=== PATIENT | female | born 1990 | race Caucasian/White ===

== ENCOUNTER 2020-04-01 17:35 | Observation (INO) | payer BC ==
[2020-04-01] MEDS ORDERED: SODIUM CHLORIDE 0.9% (FLUSH) 10 ML SYG IV PRN ×2 (17:57→22:10)
[2020-04-01] MEDS ORDERED: ONDANSETRON INJ 4 MG/2 ML VIAL IV ONE (17:57)
[2020-04-01] MEDS ORDERED: SODIUM CHLORIDE 0.9% 1000ML 1,000 ML IVS ONE (17:59)
[2020-04-01] MEDS ORDERED: HYDROmorphone HCL INJ 2 MG/ML VIAL IV ONE ×2 (18:05→19:17)
[2020-04-01] MEDS: SODIUM CHLORIDE 0.9% 1000ML 1,000 ML IVS ONE ×2 (18:16→20:45)
--- NOTE | 2020-04-01 20:05 | ED.PDOC ---
History of Present Illness - General Chief Complaint: GI Problem Stated Complaint: Abd pain, N/V x 2, SOB, not eating well Time Seen by Provider: 04/01/20 17:52 Source: patient, RN notes reviewed, Vital Signs reviewed Exam Limitations: no limitations - History of Present Illness Initial Comments: Patient is a 29-year-old white female who presents with complaints of nausea, vomiting and left upper quadrant abdominal pain for the last 2 days. Patient states the pain is worsening. Patient's been unable to hold anything down. The pain is cramping and stabbing in nature. It waxes and wanes. There is no radiation of the pain. Patient denies any fever. Nothing makes the pain better. Is worse when she tries to eat or drink anything. Timing/Duration: other - 2 days Severity: severe Improving Factors: nothing Worsening Factors: eating Associated Symptoms: loss of appetite, nausea/vomiting, shortness of breath Allergies/Adverse Reactions: Allergies NO KNOWN ALLERGY Allergy (Verified 04/01/20 17:59) Home Medications: Ambulatory Orders NK 04/01/20 Review of Systems - Review of Systems Constitutional: States: see HPI, malaise, weakness. Denies: chills, fever EENTM: States: no symptoms reported. Denies: eye pain, blurred vision, double vision, throat pain, throat swelling, mouth pain, mouth swelling Respiratory: States: no symptoms reported, see HPI, short of breath. Denies: cough, stridor, wheezing Cardiology: States: no symptoms reported. Denies: chest pain, palpitations, syncope Gastrointestinal/Abdominal: States: see HPI, abdominal pain, nausea, vomiting. Denies: constipation, diarrhea Genitourinary: States: no symptoms reported. Denies: dysuria, frequency Musculoskeletal: States: no symptoms reported. Denies: back pain, neck pain Skin: States: no symptoms reported. Denies: change in color, rash Neurological: States: no symptoms reported. Denies: headache, numbness, paresthesia, tingling Endocrine: States: no symptoms reported. Denies: excessive sweating, flushing, intolerance to cold, intolerance to heat Hematologic/Lymphatic: States: no symptoms reported All other Systems: Reviewed and Negative Past Medical History (General) - Patient Medical History Hx Stroke: No Hx of COPD: No Hx Cardiac Disorders: No Hx Hypertension: No Hx Diabetes: No Surgical History: no surgical history - Vaccination History Hx Influenza Vaccination: No Hx Pneumococcal Vaccination: No - Social History Hx Tobacco Use: Yes Hx Alcohol Use: Yes Hx Substance Use: Yes - Edible marijuana Hx Substance Use Treatment: No Hx Depression: No - Female History Patient is a Female of Child Bearing Age (10 -59 yrs old): Yes Patient : No - Denies Family Medical History - Family History Mother Living Status: Still Living Hx Family Hypertension: Yes Hx Cardiac Disease: Yes Hx Family Diabetes: Yes Physical Exam - Physical Exam General Appearance: Alert, Anxious, Obvious distress, Well Developed, Well Groomed, Well Nourished Eye Exam: bilateral normal Ears, Nose, Throat: hearing grossly normal, normal ENT inspection, normal pharynx - Except dry mucous membranes Neck: non-tender, full range of motion, supple, normal inspection Respiratory: chest non-tender, lungs clear, normal breath sounds, no respiratory distress, no accessory muscle use Cardiovascular/Chest: normal peripheral pulses, regular rate, rhythm, no edema, no gallop, no JVD, no murmur Peripheral Pulses: radial,right: 2+, radial,left: 2+ Gastrointestinal/Abdominal: normal bowel sounds, soft, tenderness - Left upper quadrant Back Exam: normal inspection, no CVA tenderness, no vertebral tenderness Extremity: normal range of motion, non-tender, normal inspection Neurologic: sneller hand II-XII nml as tested, no motor/sensory deficits, alert, normal mood/affect, oriented x 3 Skin Exam: normal color, warm/dry Lymphatic: no adenopathy Progress - Progress Progress: Differential diagnosis: Diverticulitis, bowel obstruction, pyelonephritis, UTI among others. 04/01/20 20:37 Patient with an elevated white count. On CT, patient with acute appendicitis. Plan on admission to the hospital and IV antibiotics. I discussed this plan of care with the patient and she voices understanding and agreement. I discussed this patient with Dr. Shaver, general surgery, and he agrees for admission with consult to him. He agrees with my choices Zosyn for antibiotics. I discussed this patient with Arsen Morrell NP, the hospitalist, and he is agreed to admit the patient to the hospital. Erick Diaz M.D. #[id number] - Results/Orders Results/Orders: EXAM: CT Abdomen and Pelvis With Intravenous Contrast CLINICAL HISTORY: 29 years old Female; LUQ pain. TECHNIQUE: Axial computed tomography images of the abdomen and pelvis with intravenous contrast. Sagittal and coronal reformatted images were created and reviewed. This CT exam was performed using one or more of the following dose reduction techniques: automated exposure control, adjustment of the mA and/or kV according to patient size, and/or use of iterative reconstruction technique. CONTRAST: 85 mL Optiray 320 IV. COMPARISON: No relevant prior studies available. FINDINGS: LUNG BASES: Mild patchy infiltrate/atelectasis in the lung bases. ABDOMEN: LIVER: Some periportal edema. GALLBLADDER AND BILE DUCTS: Normal without CT evidence of acute cholecystitis. PANCREAS: Unremarkable. No mass. No ductal dilation. SPLEEN: No splenomegaly or focal abnormality seen. ADRENALS: Unremarkable. No mass. KIDNEYS AND URETERS: Tiny low density in the posterior left kidney which is too small to accurately characterize by CT but statistically most likely represents a small cyst. STOMACH AND BOWEL: Moderate fecal retention and relatively diffuse colonic spasm without bowel obstruction. PELVIS: APPENDIX: [place] appendicolith in the mid appendiceal lumen which measures up to 12 mm in diameter. Distal to this appendicolith, the appendiceal lumen is distended up to 12 mm with fluid and other smaller appendicoliths to the level of the appendiceal tip. Fat stranding surrounding the appendiceal tip. No periappendiceal free fluid or loculated fluid collection seen. BLADDER: No urinary bladder wall thickening or filling defect seen. REPRODUCTIVE: 1.8 cm partially collapsed right ovarian cyst. No focal abnormality identified in the left ovary. Uterus mildly asymmetrically positioned in the left pelvis and retroflexed. Some air noted in the vaginal cavity. ABDOMEN and PELVIS: INTRAPERITONEAL SPACE: Small amount of free fluid in the dependent pelvis. No pneumoperitoneum seen. BONES/JOINTS: No acute abnormality seen. SOFT TISSUES: No acute abnormality seen. VASCULATURE: Multiple small phleboliths in the pelvis bilaterally. LYMPH NODES: No pathologic lymphadenopathy identified. IMPRESSION: - [place] appendicolith in the mid appendiceal lumen which measures up to 12 mm in diameter. Distal to this appendicolith, the appendiceal lumen is distended up to 12 mm with fluid and other smaller appendicoliths to the level of the appendiceal tip. Fat stranding surrounding the appendiceal tip. No periappendiceal free fluid or loculated fluid collection seen. Findings consistent with tip appendicitis. No pneumoperitoneum seen. - 1.8 cm partially collapsed right ovarian cyst. Associated with a small amount of free fluid in the dependent pelvis. ACR White Paper guidelines (Bryan, et. al. JACR 2013; 10(9):675-681) suggest that no follow-up is necessary. - Some periportal edema. Of uncertain clinical significance. - Moderate fecal retention and relatively diffuse colonic spasm without bowel obstruction. - This result was discussed directly with the referring clinician, Dr. Erick Diaz, via telephone on 04/01/2020 8:19 PM CDT. Thank you for allowing us to participate in the care of this patient. Electronically signed by: Marcin Ray MD 04/01/2020 8:30 PM CDT 04/01/20 17:57 Sodium Chloride 0.9% (Flush) [Saline Flush Syringe] 10 ml IV PRN PRN 04/01/20 19:05 Hold Metformin x 48Hrs [id number] 04/01/20 20:33 Piperacillin/Tazobactam [Zosyn] 4.5 gm Sodium Chloride 0.9% 100Ml [NS (NACL 0.9%) 100ml] 100 ml IVPB ONCE Laboratory Results - last 24 hr 04/01/20 04/01/20 04/01/20 18:00 18:00 18:00 WBC 12.4 H RBC 4.96 Hgb 14.3 Hct 42.3 MCV 85.4 MCH 28.9 MCHC 33.8 RDW 12.5 Plt Count 254 MPV 9.7 Absolute Neuts (auto) 8.90 H Absolute Lymphs (auto) 2.80 Absolute Monos (auto) 0.70 Absolute Eos (auto) 0.00 Absolute Basos (auto) 0.10 Neutrophils % 71.3 Lymphocytes % 22.4 Monocytes % 5.5 Eosinophils % 0.3 L Basophils % 0.5 Sodium 139 Potassium 3.3 L Chloride 103 Carbon Dioxide 20 L Anion Gap 19.3 H BUN 7 Creatinine 0.63 BUN/Creatinine Ratio 11.1 Random Glucose 130 H Serum Osmolality 277.3 Calcium 9.6 Total Bilirubin 1.4 H Direct Bilirubin 0.2 Indirect Bilirubin 1.2 H AST 32 ALT 25 Alkaline Phosphatase 60 Serum Total Protein 7.9 Albumin 4.9 Lipase 35 Serum HCG, Qual Urine Color Urine Appearance Urine pH Ur Specific [place] Urine Protein Urine Glucose (UA) Urine Ketones Urine Blood Urine Nitrite Urine Bilirubin Urine Urobilinogen Ur Leukocyte Esterase Urine RBC Urine WBC Ur Epithelial Cells Urine Bacteria Urine Mucus 04/01/20 04/01/20 18:00 19:59 WBC RBC Hgb Hct MCV MCH MCHC RDW Plt Count MPV Absolute Neuts (auto) Absolute Lymphs (auto) Absolute Monos (auto) Absolute Eos (auto) Absolute Basos (auto) Neutrophils % Lymphocytes % Monocytes % Eosinophils % Basophils % Sodium Potassium Chloride Carbon Dioxide Anion Gap BUN Creatinine BUN/Creatinine Ratio Random Glucose Serum Osmolality Calcium Total Bilirubin Direct Bilirubin Indirect Bilirubin AST ALT Alkaline Phosphatase Serum Total Protein Albumin Lipase Serum HCG, Qual Negative Urine Color Yellow Urine Appearance Sl cloudy Urine pH >= 9.0 H* Ur Specific [place] 1.015 Urine Protein Trace Urine Glucose (UA) Negative Urine Ketones 40 H Urine Blood Negative Urine Nitrite Negative Urine Bilirubin Negative Urine Urobilinogen 0.2 Ur Leukocyte Esterase Negative Urine RBC 0 Urine WBC 0-1 Ur Epithelial Cells 1-3 Urine Bacteria 0 Urine Mucus Small Departure - Departure Clinical Impression: Dehydration, Hypokalemia Appendicitis Qualifiers: Appendicitis type: acute appendicitis Acute appendicitis type: with localized peritonitis Appendicitis gangrene presence: without gangrene Appendicitis perforation presence: without perforation Appendicitis abscess presence: without abscess Qualified Code(s): K35.30 - Acute appendicitis with localized peritonitis, without perforation or gangrene Time of Disposition: 18:20 Disposition: Admit Patient Condition: Good Departure Forms: ED Discharge - Pt. Copy, Patient Portal Self Enrollment Referrals: Leroy Nguyen MD [Primary Care Provider] - 1-2 Weeks Home Medications: Ambulatory Orders NK 04/01/20 Decision To Admit - Decistion To Admit Decision to Admit Date: 04/01/20 Decision to Admit Time: 18:20
--- NOTE | 2020-04-01 20:31 | CT ---
EXAM: CT Abdomen and Pelvis With Intravenous Contrast CLINICAL HISTORY: 29 years old Female; LUQ pain. TECHNIQUE: Axial computed tomography images of the abdomen and pelvis with intravenous contrast. Sagittal and coronal reformatted images were created and reviewed. This CT exam was performed using one or more of the following dose reduction techniques: automated exposure control, adjustment of the mA and/or kV according to patient size, and/or use of iterative reconstruction technique. CONTRAST: 85 mL Optiray 320 IV. COMPARISON: No relevant prior studies available. FINDINGS: LUNG BASES: Mild patchy infiltrate/atelectasis in the lung bases. ABDOMEN: LIVER: Some periportal edema. GALLBLADDER AND BILE DUCTS: Normal without CT evidence of acute cholecystitis. PANCREAS: Unremarkable. No mass. No ductal dilation. SPLEEN: No splenomegaly or focal abnormality seen. ADRENALS: Unremarkable. No mass. KIDNEYS AND URETERS: Tiny low density in the posterior left kidney which is too small to accurately characterize by CT but statistically most likely represents a small cyst. STOMACH AND BOWEL: Moderate fecal retention and relatively diffuse colonic spasm without bowel obstruction. PELVIS: APPENDIX: [place] appendicolith in the mid appendiceal lumen which measures up to 12 mm in diameter. Distal to this appendicolith, the appendiceal lumen is distended up to 12 mm with fluid and other smaller appendicoliths to the level of the appendiceal tip. Fat stranding surrounding the appendiceal tip. No periappendiceal free fluid or loculated fluid collection seen. BLADDER: No urinary bladder wall thickening or filling defect seen. REPRODUCTIVE: 1.8 cm partially collapsed right ovarian cyst. No focal abnormality identified in the left ovary. Uterus mildly asymmetrically positioned in the left pelvis and retroflexed. Some air noted in the vaginal cavity. ABDOMEN and PELVIS: INTRAPERITONEAL SPACE: Small amount of free fluid in the dependent pelvis. No pneumoperitoneum seen. BONES/JOINTS: No acute abnormality seen. SOFT TISSUES: No acute abnormality seen. VASCULATURE: Multiple small phleboliths in the pelvis bilaterally. LYMPH NODES: No pathologic lymphadenopathy identified. IMPRESSION: - [place] appendicolith in the mid appendiceal lumen which measures up to 12 mm in diameter. Distal to this appendicolith, the appendiceal lumen is distended up to 12 mm with fluid and other smaller appendicoliths to the level of the appendiceal tip. Fat stranding surrounding the appendiceal tip. No periappendiceal free fluid or loculated fluid collection seen. Findings consistent with tip appendicitis. No pneumoperitoneum seen. - 1.8 cm partially collapsed right ovarian cyst. Associated with a small amount of free fluid in the dependent pelvis. ACR White Paper guidelines (Adams, et. al. JACR 2013; 10(9):675-681) suggest that no follow-up is necessary. - Some periportal edema. Of uncertain clinical significance. - Moderate fecal retention and relatively diffuse colonic spasm without bowel obstruction. - This result was discussed directly with the referring clinician, Dr. Erick Diaz, via telephone on 04/01/2020 8:19 PM CDT. Thank you for allowing us to participate in the care of this patient. Electronically signed by: Marcin Ray MD 04/01/2020 8:30 PM CDT
[2020-04-01] MEDS ORDERED: PIPERACILLIN/TAZOBACTAM 4.5 GM in SODIUM CHLORIDE 0.9% 100ML 100 ML IVPB ONE (20:33)
[2020-04-01] MEDS ORDERED: PROMETHAZINE HCL INJ 25 MG in SODIUM CHLORIDE 0.9% 50ML 50 ML IVPB ONE (20:39)
[2020-04-01] MEDS ORDERED: SODIUM CHLORIDE 0.9% 1000ML 1,000 ML ONE (20:45)
--- NOTE | 2020-04-01 20:52 | HP ---
SUPERVISING PHYSICIAN: Claude Dodd MD CHIEF COMPLAINT: Right lower quadrant pain consistent with appendicitis. HISTORY OF PRESENT ILLNESS: Ms. Garrison is a 29-year-old female patient who presented to the Emergency Room last night with some acute right sided abdominal pain. She endorsed the onset of symptoms was acute within 3 hours prior to admission. She had previously not had any similar symptoms. On admission, she denied any fever or chills. She had a little bit of nausea with food and no other significant symptoms. Workup in the ER did show she had a leukocytosis of 12,400 with early left shift. CT of the abdomen with contrast showed findings consistent with acute appendicitis. The patient is going to be placed in observation for surgical consultation with Dr. Rivera for laparoscopic appendectomy in the morning. She is in stable condition at time of admission. PAST MEDICAL HISTORY: No chronic illnesses. PAST SURGICAL HISTORY: No surgical history. HOME MEDICATIONS: No chronic medications, no [id number] medications. ALLERGIES: NO KNOWN DRUG ALLERGIES. FAMILY HISTORY: Noncontributory. SOCIAL HISTORY: The patient lives in [place]. She is and has one child. She does not smoke, does not drink alcohol and does not use any illicit drugs. REVIEW OF SYSTEMS: CONSTITUTIONAL: Negative for any fevers, chills, general malaise, body aches. HEENT: Negative for headaches, sore throats, nasal congestion, vision changes. RESPIRATORY: Negative for coughing, wheezing or shortness of breath. CARDIOVASCULAR: Negative for chest pain, palpitations or syncopal episodes. GASTROINTESTINAL: As noted in history of present illness, right lower quadrant abdominal pains, nausea. Denies constipation or diarrhea. GENITOURINARY: Negative for dysuria, hematuria, polyuria. MUSCULOSKELETAL: Negative for arthralgias or joint swelling. SKIN: Negative for lesions, rashes, moles or unexplained changes. NEUROLOGIC: Negative for headaches, vision changes, syncopal episodes, ataxia, seizures, focal deficits. HEMATOLOGIC: Negative for easy bruising, unexplained bleeding or transfusion reactions. PHYSICAL EXAMINATION: VITAL SIGNS: Temperature 97, pulse 114, blood pressure 114/64, respirations 21, O2 saturation 98% on room air. GENERAL: The patient is resting comfortably, does not appear to be in any acute distress. She is alert. HEENT: Tympanic membranes clear bilaterally. Oropharynx is pink, moist without any lesions. NECK: Supple, nontender with full range of motion. No jugular venous distention noted. RESPIRATORY: Clear to auscultation bilaterally without any rhonchi, wheezes or rales. CARDIOVASCULAR: Regular rate and rhythm without any appreciable murmurs, gallops, or rubs. ABDOMEN: Soft with some tenderness noted in the right lower quadrant. There is rebound tenderness and point tenderness to the right lower quadrant. No other concerning signs, no peritoneal signs. Bowel sounds active. EXTREMITIES: There is no cyanosis, clubbing or edema. NEUROLOGIC: The patient is alert and oriented times three. LABORATORY: White count on admission was 12.4, hemoglobin 14.3, hematocrit 42.3. Differential showed early left shift. Platelet count 254,000. Chemistries showed electrolytes with potassium 3.3, creatinine 0.63. Liver functions show slightly elevated bilirubin at 0.4. AST, ALT within normal limits. Lipase normal. Urine HCG negative. Urine showed just 40 of ketones, otherwise within normal limits. RADIOLOGY: CT of the abdomen and pelvis with contrast showed findings consistent with acute appendicitis. ASSESSMENT: 1. Acute appendicitis. PLAN: The patient is going to be placed in observation for surgical consultation with Dr. Rivera with anticipation of laparoscopic appendectomy in the morning. She will be NPO overnight. She will be provided with pain management and antiemetics if needed. I anticipate her length of stay to be one to two days probably discharging later tomorrow after she has surgery. Until then, we will continue to monitor and treat as needed. #[id number] [facility]
[2020-04-01] MEDS ORDERED: ONDANSETRON INJ 4 MG/2 ML VIAL IV PRN (22:10)
[2020-04-01] MEDS ORDERED: ACETAMINOPHEN 325 MG TAB PO PRN (22:10)
[2020-04-01] MEDS ORDERED: KCL 20MEQ/D5 1/2NS 1,000 ML IVS PRN (22:18)
[2020-04-01] MEDS ORDERED: IV SET AND CAP CHANGE INJ INJ SCH (22:30)
[2020-04-02] MEDS: MORPHINE SULFATE INJ 10 MG/ML VIAL IV PRN ×2 (03:17→07:24)
[2020-04-02] MEDS ORDERED: PANTOPRAZOLE SODIUM IV 40 MG VIAL IV SCH (06:30)
[2020-04-02] MEDS ORDERED: KETOROLAC TROMETHAMINE INJ 30 MG/ML VIAL ONE (07:00)
[2020-04-02] MEDS ORDERED: GLYCOPYRROLATE 0.2 MG/ML VIAL ONE (07:00)
[2020-04-02] MEDS ORDERED: LIDOCAINE 1% 10 ML VIAL INJ ONE (07:00)
[2020-04-02] MEDS ORDERED: NEOSTIGMINE METHYLSULFATE 1 MG/ML ML IV ONE ×2 (07:00→07:08)
[2020-04-02] MEDS ORDERED: ONDANSETRON INJ 4 MG/2 ML VIAL ONE (07:00)
[2020-04-02] MEDS ORDERED: PROPOFOL 200 MG/20 ML VIAL IV ONE (07:00)
[2020-04-02] MEDS ORDERED: DEXAMETHASONE INJ 10 MG/ML VIAL ONE (07:00)
[2020-04-02] MEDS ORDERED: MIDAZOLAM INJ 2 MG/2 ML VIAL ONE (07:05)
[2020-04-02] MEDS ORDERED: BUPIVACAINE 0.5% W/EPI 30 ML VIAL INJ ONE ×3 (07:05→08:56)
[2020-04-02] MEDS ORDERED: fentaNYL CITRATE INJ 50 MCG/ML AMP ONE (07:05)
[2020-04-02] MEDS ORDERED: SODIUM CHLORIDE 0.9% 1000ML 1,000 ML ONE (07:05)
[2020-04-02] MEDS ORDERED: ROCURONIUM BROMIDE 10 MG/ML VIAL ONE (07:06)
[2020-04-02] MEDS ORDERED: SUCCINYLCHOLINE CHLORIDE 200 MG/10 ML VIAL ONE (07:06)
[2020-04-02] MEDS ORDERED: SODIUM CHLORIDE 0.9% 100ML 100 ML IVPB ONE (08:08)
[2020-04-02] MEDS ORDERED: LACTATED RINGERS 1,000 ML ONE ×2 (08:17→09:27)
[2020-04-02] MEDS ORDERED: LACTATED RINGERS 1,000 ML IVS ONE (09:25)
[2020-04-02] MEDS ORDERED: PIPERACILLIN/TAZOBACTAM 4.5 GM in SODIUM CHLORIDE 0.9% 100ML 100 ML IVPB SCH (09:30)
--- NOTE | 2020-04-02 09:33 | OP ---
DATE OF PROCEDURE: 04/01/20 PREOPERATIVE DIAGNOSIS: Acute appendicitis. POSTOPERATIVE DIAGNOSIS: Acute appendicitis. PROCEDURE: Laparoscopic appendectomy. SURGEON: Leroy Rivera MD ANESTHESIA: General and local. FINDINGS: Acute suppurative nonperforated appendix. COMPLICATIONS: None. ESTIMATED BLOOD LOSS: Minimal. SPECIMEN: Appendix. PLAN: Likely discharge after recovery. INDICATION: As stated. PROCEDURE: General anaesthesia was induced. She was prepped and draped in sterile fashion. 0.5% Marcaine with epinephrine was used at all incision sites. While maintaining upward traction, a shiela was made in the base of the umbilicus. A Veress needle was introduced. There was free flow of fluid into the peritoneal cavity which was insufflated to an appropriate level with CO2 gas. A 5 mm trocar was placed followed by the camera. There was no evidence of bleeding or bowel injury. The patient was positioned and the suprapubic and right lower quadrant ports were placed under direct visualization without difficulty. The appendix was easily identified. It was quite long with some natural adhesions to it. These were freed up until we could see the mesoappendix. We took it in two bites, one of them to get rid of the distal mesocolon and then the next one to get the mesocolon to the base of the appendix. This was done without difficulty. The staple line remained hemostatic. We then used the blue load to staple off the appendix. It was then removed from the abdominal cavity. We re-inserted the camera and reexamined. The staple line was intact. There was no bleeding or leakage. The area was irrigated. All aspirate was clear. The pelvis was cleared out as well. There was some reactive fluid, no other abnormalities were seen. The suprapubic fascia was then closed with #0 Vicryl using the suture passers. The area was airtight and non-bleeding. The remaining trocars were removed. The abdomen had been desufflated. The wounds were closed with Monocryl and dressing applied. She tolerated the procedure and was taken to Recovery to be admitted. #[id number] [facility]
--- NOTE | 2020-04-02 09:48 | CONS ---
DATE OF CONSULTATION: 04/01/20 REASON FOR CONSULTATION: Acute appendicitis. HISTORY OF PRESENT ILLNESS: This is a 29-year-old woman who presented to the Emergency Room this evening with acute abdominal pain. This had been going on for just a few hours. No nausea or vomiting, no fevers or chills, no history of similar symptoms, no sick contacts. PAST MEDICAL HISTORY: None. PAST SURGICAL HISTORY: None. MEDICATIONS: None. ALLERGIES: None. PATIENT ACCOUNTING REPRESENTATIVE HISTORY: She had a normal spontaneous vaginal delivery of one baby girl who is 3 years old. FAMILY HISTORY: Noncontributory. REVIEW OF SYSTEMS: CONSTITUTIONAL: No fevers, no chills. HEENT: No headache, visual changes, sore throat. RESPIRATORY: No cough or wheeze. CARDIOVASCULAR: No chest pain or palpitations. GASTROINTESTINAL: As above. No diarrhea. GENITOURINARY: No frequency, dysuria or hematuria. EXTREMITIES: No complaints. PHYSICAL EXAMINATION: VITAL SIGNS: Afebrile. Temperature 98.5. Heart rate in the 70s. Blood pressure 113/83. GENERAL: The patient is conscious, awake, alert and well-oriented, in no distress. HEENT: Normocephalic, atraumatic. Pupils equal and reactive. Sclerae anicteric. Oral mucosa is moist. NECK: Supple. CHEST: Clear and equal bilaterally. No wheezing or crackles. HEART: Regular rate and rhythm. No murmurs, rubs or gallops. ABDOMEN: Soft. There is right lower quadrant tenderness with focal guarding. No rebound. No evidence of diffuse peritonitis. No lastly skin changes. No CVA tenderness. EXTREMITIES: No cyanosis, clubbing or edema. LABORATORY: White count 12, hematocrit 42. Potassium 3.3, CO2 20. Transaminases are normal. Bilirubin is slightly high. RADIOLOGY: CT scan was done that reports acute, uncomplicated appendicitis. IMPRESSION: 1. Acute appendicitis. PLAN: She is admitted. She will receive antibiotics and planned and consented for laparoscopic appendectomy. [facility][id number] [facility]
[2020-04-02 10:40] VITALS: BP 113/67; TEMP 98.4; O2SAT 94
== END 2020-04-02 12:45 | disposition home or self-care (01) ==
LOC: ER 17:35 → MS 20:51
PROVIDERS: ADMIT Nurse Practitioner Family; ATTEND Nurse Practitioner Family
DX: K35.890 Other acute appendicitis without perforation or gangrene (principal); E86.0 Dehydration; E87.6 Hypokalemia; R06.02 Shortness of breath; N83.201 Unspecified ovarian cyst, right side; Z87.891 Personal history of nicotine dependence
CPT/HCPCS: 96361; 96365; 96368; 96375 ×2; 96376 ×2; J3010; J1170 ×2; J1885; J2270 ×2; J2710 ×2; J2405 ×2; J2550; J3490; J7030 ×3; A4216; J0330; J1100; J2250; J2543 ×2; J7050 ×3; J7120 ×3; 80048 ×2; 36415; 81001; 80076; 85025 ×2; 84703; 83690; 74177; 94760; 99285; G0378; 44970; 00840